=== PATIENT | male | born 1970 | race Caucasian/White ===

== ENCOUNTER 2019-01-19 09:12 | Emergency (ER) | payer OTHER ==
[~2019-01-19] VITALS: Wt 90.8 kg
[2019-01-19] MEDS ORDERED: ACYC800T5 PO (09:25)
[2019-01-19] MEDS ORDERED: PRED20TA PO (09:25)
[2019-01-19 09:28] VITALS: BP 183/123; PULSE 86; RESP 20
--- NOTE | 2019-01-19 09:28 | ERD ---
ER Documentation Chief Complaint Chief Complaint R SIDE FACIAL PARALYSIS SINCE YESTERDAY. NO MOTOR, NO ATAXIA, SPEECH CLEAR HPI 48-year-old male presents the emergency department complaining right-sided facial droop. Patient was in her usual state of health until yesterday which time he began having weakness on the right side of his face. He reported no headache, difficulty speaking, focal weakness or numbness. He reported no chest pain or palpitations or any other symptoms prior to the onset of his facial symptoms. ROS All systems reviewed and are negative except as per history of present illness. Medications Home Meds Active Scripts Prednisone* (Prednisone*) 20 Mg Tab, 60 MG PO DAILY for 5 Days, TAB Prov:SOHAM,JULIO C 01/19/19 Acyclovir* (Zovirax*) 800 Mg Tablet, 800 MG PO 5 TIMES DAILY for 7 Days, TAB Prov:SOHAM,JULIO C 01/19/19 Allergies Allergies: Coded Allergies: No Known Allergy (Unverified , 01/19/19) FmHx Noncontributory for chief complaint Physical Exam Vitals Vital Signs Date Temp Pulse Resp B/P (MAP) Pulse Ox O2 O2 Flow FiO2 Time Delivery Rate 01/19/19 86 20 183/123 97 Room Air 09:28 (143) 01/19/19 98.5 91 18 226/128 98 09:16 (160) Physical Exam GENERAL: The patient is well developed and appropriate for usual state of health in no apparent distress HEENT: Pupils equal, round, and reactive to light. EOMI. There is no scleral icterus. NECK: C-spine is soft and supple, there is no meningismus. There is no cervical lymphadenopathy. LUNGS: Clear to auscultation bilaterally. There are no rales, wheezes or rhonchi. HEART: Regular rate and rhythm, no murmurs, clicks, rubs or gallops. ABDOMEN: Soft, non-tender, non-distended. There are bowel sounds in all four quadrants. No rebound or guarding. EXTREMITIES: There is no peripheral cyanosis or edema. No focal swelling or erythema. NEURO: Patient is awake, alert, oriented. He has clear speech and normal comp rehension. Pupils are midrange, equal round and reactive to light, extraocular movements are intact. Face demonstrates a peripheral right-sided facial nerve palsy which appears peripheral. The left side of the face appears to be normal. Motor strength is nonfocal with normal strength in both upper and lower extremities. [id number] is normal bilaterally. He has a normal speech gait and balance. SKIN: There is no apparent rash or petechiae. HEME/LYMPHATIC: There is no evidence of excessive bruising or lymphedema. PSYCHIATRIC: The patient does not appear anxious or depressed. Procedures/MDM Patient was taken to a room, seen and examined Medical decision makin-year-old diabetic hypertensive male presents with a peripheral 7th nerve palsy. Although the patient has risk factors for stroke, his presentation is clearly consistent with a peripheral nerve lesion. Patient has been reeducated on the need for blood pressure control and diabetes control. Patient is otherwise clinically nontoxic and appropriate for outpatient care for treatment of his Mar's palsy. Departure Diagnosis: Primary Impression: Mar's palsy Condition: Stable Patient Instructions: Mar's Palsy Additional Instructions: See your doctor for follow-up as discussed. Take a copy of your test results, if appropriate, to this follow-up visit. See your doctor or return here if your symptoms do not improve as expected. At any time, please return to the emergency department for any change or worsening in her symptoms. JULIO C ROUSSEAU Jan 19, 2019 09:28
== END 2019-01-19 09:50 | disposition home or self-care (01) ==
LOC: E/R 09:12
DX: G51.0 Bell's palsy (principal); I10 Essential (primary) hypertension; E11.9 Type 2 diabetes mellitus without complications
CPT/HCPCS: 82962; Z7502; 99283